=== PATIENT | male | born 1990 | race Caucasian/White ===

== ENCOUNTER 2018-06-02 16:29 | Observation (INO) | payer SELFPAY ==
[2018-06-02] MEDS ORDERED: LR 1,000 ML IV ONE (16:34)
[2018-06-02] MEDS ORDERED: LIDOCAINE 1% 2 ML INJ ID PRN (16:34)
[2018-06-02] MEDS ORDERED: BUPIVACAINE/EPI 0.25% 30 ML SDV ONE (16:35)
[2018-06-02] MEDS ORDERED: MIDAZOLAM 2 MG/2 ML VIAL IVP ONE (16:56)
[2018-06-02] MEDS ORDERED: DEXAMETHASONE 4 MG/ML VIAL ONE (16:58)
[2018-06-02] MEDS ORDERED: SUGAMMADEX SODIUM 200 MG/2 ML VIAL IVP ONE (16:58)
[2018-06-02] MEDS ORDERED: fentaNYL 100 MCG/2 ML INJ ONE ×2 (16:58→18:41)
[2018-06-02] MEDS ORDERED: ROCURONIUM 50 MG/5 ML VIAL ONE (16:58)
[2018-06-02] MEDS ORDERED: PROPOFOL 200 MG/20 ML VIAL ONE (16:58)
[2018-06-02] MEDS ORDERED: LIDOCAINE 2% 2 ML INJ ONE (16:58)
[2018-06-02] MEDS ORDERED: ONDANSETRON 4 MG/2 ML VIAL ONE ×2 (16:58→18:36)
--- NOTE | 2018-06-02 17:08 | PDGENHP ---
History and Physical - Chief Complaint appendicitis - History of Present Illness 27yo otherwise healthy male, had pain since yesterday went to urgent care and had some labs. Saw PCP today, Ct scan shows appendicitis. Pain is RLQ, worse with palpation. Nauseated and has vomited. History Information - Allergies/Home Medication List Allergies/Adverse Reactions: No Allergies [NKDA] Allergy (Verified 06/02/18 16:46) Home Medications: Multivitamin DAILY 06/02/18 [Last Taken 1 Day Ago ~06/01/18] I have personally reviewed and updated: family history, medical history, social history, surgical history - Past Medical History no pertinent PMH - Surgical History Additional surgical history: wisdom teeth extraction - Family History Positive for: non-pertinent - Social History Smoking Status: Never smoked Review of Systems Review of Systems: ROS: 10pt was reviewed & negative except for what was stated in HPI & below Physical Exam Physical Exam: Temp Pulse Resp BP Pulse Ox 36.8 C 98 18 160/83 H 97 06/02/18 16:47 06/02/18 16:47 06/02/18 16:47 06/02/18 16:47 06/02/18 16:47 Constitutional: no apparent distress, appears nourished, not in pain Eyes: PERRL, anicteric sclera, EOMI Ears, Nose, Mouth, Throat: moist mucous membranes, hearing normal, ears appear normal, no oral mucosal ulcers Cardiovascular: regular rate and rhythym, no murmur, rub, or gallop, No edema Respiratory: no respiratory distress, no rales or rhonchi, clear to auscultation Gastrointestinal: normoactive bowel sounds, soft, non-tender abdomen, no palpable masses Genitourinary: no bladder fullness, no bladder tenderness Skin: warm, normal color, no rashes or abrasions, no fluctuance, no induration, No mottled Musculoskeletal: full muscle strength, no muscle tenderness, normal joint ROM, no joint effusions Psychiatric: interacting appropriately, not anxious, not encephalopathic, thought process linear Lymph, Heme, Immunologic: no cervical LAD, no supraclavicular LAD Lab Data & Imaging Review Visualized and Interpreted imaging results: Yes Interpretation: CT: acute appendicitis Assessment & Plan Plan: 27yo M c acute appendicitis - IV abx given in pre-op - to OR for lap appy
--- NOTE | 2018-06-02 17:15 | PDANEPAE ---
ANE Past Medical History - Cardiovascular History Hx Hypertension: No Hx Arrhythmias: No Hx Chest Pain: No - Pulmonary History Hx COPD: No Hx Asthma/Reactive Airway Disease: No Hx Sleep Apnea: No - Neurologic History Hx Cerebrovascular Accident: No - Endocrine History Hx Diabetes: No Hypothyroid: No - Renal History Hx Renal Disorders: No - Liver History Hx Hepatic Disorders: No - Neurological & Psychiatric Hx Hx Neurological and Psychiatric Disorders: No - Cancer History Hx Cancer: No - Congenital Disorder History Hx Congenital Disorders: No - GI History Hx Gastrointestinal Disorders: Yes Gastrointestinal History Comment: Appy - Chronic Pain History Chronic Pain: No - Surgical History Prior Surgeries: [place] teeth removal ANE Review of Systems Review of Systems: ANE Patient History - Allergies Allergies/Adverse Reactions: No Allergies [NKDA] Allergy (Verified 06/02/18 16:46) - Home Medications Home Medications: Multivitamin DAILY 06/02/18 [Last Taken 1 Day Ago ~06/01/18] - NPO status NPO Since - Liquids (Date): 06/02/18 NPO Since - Liquids (Time): 15:45 NPO Since - Solids (Date): 06/02/18 NPO Since - Solids (Time): 15:45 - Smoking Hx Smoking Status: Never smoked - Family Anes Hx Family Hx Anesthesia Complications: NA ANE Labs/Vital Signs - Vital Signs Blood Pressure: 160/83 Heart Rate: 98 Respiratory Rate: 18 O2 Sat (%): 97 Height: 190.5 cm Weight: 81.647 kg ANE Physical Exam - Airway Neck exam: FROM Mallampati Score: Class 1 Mouth exam: normal dental/mouth exam - Pulmonary Pulmonary: no respiratory distress, no rales or rhonchi, clear to auscultation - Cardiovascular Cardiovascular: regular rate and rhythym, no murmur, rub, or gallop - ASA Status ASA Status: II, E ANE Anesthesia Plan Anesthesia Plan: general endotracheal anesthesia
[2018-06-02] MEDS ORDERED: LR 500 ML IV PRN (17:27)
[2018-06-02] MEDS ORDERED: ALBUTEROL 3 ML DEYVIAL IH PRN (17:27)
[2018-06-02] MEDS ORDERED: ONDANSETRON 4 MG/2 ML VIAL IVP PRN ×2 (17:27→18:17)
[2018-06-02] MEDS ORDERED: oxyCODONE IR 5 MG TAB PO PRN ×2 (17:27→18:17)
[2018-06-02] MEDS ORDERED: NALOXONE HCL 0.4 MG/ML INJ IVP PRN (17:27)
[2018-06-02] MEDS ORDERED: NS 500 ML IV PRN (17:27)
[2018-06-02] MEDS ORDERED: MEPERIDINE 25 MG/0.5 ML AMP IVP PRN (17:27)
[2018-06-02] MEDS ORDERED: METOCLOPRAMIDE 10 MG/2 ML VIAL IVP PRN (17:27)
[2018-06-02] MEDS ORDERED: PHENYLEPHRINE HCL 100 MCG/ML SYR IVP PRN (17:27)
[2018-06-02] MEDS ORDERED: PROMETHAZINE HCL 25 MG/ML INJ IVP PRN (17:27)
[2018-06-02] MEDS ORDERED: HYDROmorphONE/DILAUDID 1 MG/ML INJ IVP PRN ×2 (17:27→18:17)
--- NOTE | 2018-06-02 17:28 | POSTANESTH ---
Post Anesthetic Evaluation Cardiovascular Status: Normal, Stable Respiratory Status: Normal, Stable Level of Consciousness/Mental Status: Can Participate in Eval Pain Control: Adequate, Prn Tx Ordered Nausea/Vomiting Control: Adequate, Prn Tx Ordered Complications Possibly Related to Anesthesia: None Noted
[2018-06-02] MEDS ORDERED: ACETAMINOPHEN 325 MG TAB PO PRN (18:17)
--- NOTE | 2018-06-02 18:17 | POSTOPPROG ---
Post Op Note Date of Operation: 06/02/18 Surgeon: Óscar Richardson Anesthesiologist: Estrella Anesthesia: GET(General Endotracheal) Pre-op Diagnosis: appendicitis Post-op Diagnosis: same Procedure: laparoscopic appendectomy Findings: acute, non perforated Inf/Abcess present in the surg proc area at time of surgery?: No EBL: Minimal Specimen(s): appendix
[2018-06-02] MEDS ORDERED: D5W 1/2 NS W/ 20 KCl/L 1,000 ML IV SCH (18:30)
[2018-06-02] MEDS: fentaNYL 100 MCG/2 ML INJ IVP PRN ×2 (18:43→18:54)
[2018-06-02] MEDS: IBUPROFEN 600 MG TAB PO SCH (21:20)
[2018-06-03] MEDS: IBUPROFEN 600 MG TAB PO SCH (06:19)
[2018-06-03 07:25] VITALS: BP 124/72
--- NOTE | 2018-06-03 11:27 | ASMTLACE ---
LACE Length of stay for Answers: Less than 1 day current admission Acuity / Level of Answers: Yes Care: Did the patient have an inpatient admission? # of Emergency department Answers: 0 visits in the last 6 months Score: 3 Date Signed: 06/03/2018 11:23 AM Electronically Signed By:Irene Mccord
--- NOTE | 2018-06-03 11:29 | ASMTDCNOTE ---
Case Management Discharge Discharge Order Complete? Answers: Yes Patient to Obtain Answers: Independently Medications Transportation Arranged Answers: Other Notes: self Discharge Comments Notes: CM reviewed chart. Medically cleared for independent discharge. Date Signed: 06/03/2018 11:26 AM Electronically Signed By:Irene Mccord
--- NOTE | 2018-06-04 09:02 | GOP ---
[f rep st] OPERATIVE REPORT DATE OF OPERATION: 06/02/2018 SURGEON: Óscar Richardson MD ANESTHESIA: General endotracheal provided by Dr. Jason De La Rosa. PREOPERATIVE DIAGNOSIS: Acute appendicitis. POSTOPERATIVE DIAGNOSIS: Acute appendicitis. PROCEDURE PERFORMED: Laparoscopic appendectomy. FINDINGS: Acute indurated nonperforated appendicitis. SPECIMENS: Appendix. ESTIMATED BLOOD LOSS: 5 cc. DESCRIPTION OF PROCEDURE: The patient was greeted in the preoperative suite. Once again, risks, benji efits, and alternatives were discussed. Consent was signed. He was then brought back to the operati ve suite, placed on the OR table in supine position. After all anesthesia machines including SCDs we re on and functioning, a [employer] time-out was performed. After successful inductio n of general anesthesia, the patient's abdomen was prepped and draped in typical sterile fashion. I commenced the procedure by making an infraumbilical cutdown through which a Veress needle was passed. I achieved pneumoperitoneum to 15 mmHg CO2, which was well tolerated. Through this, I then inserte d a 12 mm Visiport under direct visualization. I then inserted 2 additional 5 mm trocars, one in the suprapubic and one in the left lower quadrant, both under direct visualization. I identified the ap pendix by tracing the taenia inferiorly. The appendix was somewhat retrocecal. It was brought into the operative field. It was indurated but not grossly perforated. A window was created at the base and the mesoappendix was taken with the Harmonic Scalpel. The appendix was then amputated off the ce joann base with a single fire Endo-SUDHEER blue load stapler. It was placed in an EndoCatch bag and remove d. He did have some cloudy fluid in the pelvis. This was irrigated out. His abdomen was irrigated with a liter of sterile saline. My mesoappendix and staple line were clean, dry, intact and hemostat ic. I infiltrated all port sites with local anesthesia. Pneumoperitoneum was evacuated and ports we re removed. I closed my infraumbilical port site with a 0 Vicryl stitch, noting excellent fascial re approximation. The skin was closed with Monocryl. Dermabond was placed. The patient was then extub ated in the operative suite and taken to the PACU in satisfactory condition. DRAINS: None. COUNTS: All counts were reported as correct x2. /[id number]/MODL
== END 2018-06-03 10:00 | disposition home or self-care (01) ==
LOC: FSGY 16:29 → F3E 18:17 → F1N 19:43
PROVIDERS: ADMIT Surgery; ATTEND Surgery
PROC: 0DTJ4ZZ Resection of Appendix, Percutaneous Endoscopic Approach (ICD-10-PCS; principal; 2018-06-02 16:45)
DX: K35.80 Unspecified acute appendicitis (principal)
CPT/HCPCS: G0378; J0696; J1100; J1170; J2250; J2405; J2704; J3010